=== PATIENT | male | born 1960 | race Caucasian/White ===

== ENCOUNTER 2024-11-21 10:30 | Outpatient (RCR) | payer BC, OTHER, SELFPAY | END 2024-11-24 13:12 | disposition home or self-care (01) | PROVIDERS: Visit Provider Orthopaedic Surgery | DX: M75.122 Complete rotator cuff tear or rupture of left shoulder, not specified as traumatic (principal); M75.22 Bicipital tendinitis, left shoulder; Z98.890 Other specified postprocedural states; M75.42 Impingement syndrome of left shoulder; M25.512 Pain in left shoulder; M62.512 Muscle wasting and atrophy, not elsewhere classified, left shoulder; Z51.89 Encounter for other specified aftercare | CPT/HCPCS: 97110; 97140; 97161 ==